=== PATIENT | male | born 1995 | race Caucasian/White ===

== ENCOUNTER → 2017-12-09 | Outpatient (CLI) | payer BC ==
--- NOTE | 2017-12-09 08:09 | Diagnostic Imaging Report ---
INDICATION: Abdominal pain, epigastric pain TECHNIQUE: Multiple grayscale sonographic images were obtained of the right upper quadrant of the abdomen. CORRELATION STUDY: None FINDINGS: LIVER: There is uniform echotexture within the visualized portions of the liver. Liver length at 17 cm. GALLBLADDER: The gallbladder demonstrates no definitive shadowing gallstones. No abnormal gallbladder wall thickening or pericholecystic fluid. COMMON BILE DUCT: Largely obscured and therefore not well visualized. No definitive evidence for significant bile duct dilatation. PANCREAS: Largely obscured. RIGHT KIDNEY: Measures 9.8 cm. No hydronephrosis. AORTA/IVC: Not well visualized. OTHER: None. IMPRESSION: 1. Limited imaging of the upper abdomen. No definitive evidence for shadowing gallstones. Biliary tree is not visualized but without findings to suggest overt bile duct dilatation. Overall appears to be likely within normal limits. Dictated by: Dictated on workstation # [id number]
== END ==
LOC: RAD 06:53
PROVIDERS: ATTEND Nurse Practitioner Primary Care
DX: R10.13 Epigastric pain (principal)
CPT/HCPCS: 76705